=== PATIENT | female | born 1955 | race Caucasian/White ===

== ENCOUNTER 2018-05-16 06:48 | Day surgery (SDC) | payer OTHER, MEDICARE, MEDICAID ==
[~2018-05-16] VITALS: Ht 170.2 cm; Wt 63.6 kg
[~2018-05-16 06:48] MED LIST: ACET-2247 PO; BISA10S PR; BUSP15 PO; CALC25 PO; DENO60DI SQ; DIVA-78 PO; DIVA250T45 PO; FAMO1TAB29 PO; GUAIFDM PO; LEVO137T24 PO; LINA72CA PO; METO25XL PO; MOM30 PO; MULT-685 PO; PHEN200C PO; QUET100T PO; [UNRECOGNIZED DRUG - CODE] VG
[2018-05-16] MEDS ORDERED: RINGERS SOLUTION,LACTATED 1,000 ML IV ONE ×2 (07:00→08:19)
[2018-05-16] MEDS ORDERED: MIDAZOLAM HCL 5 MG/ML VIAL ONE (07:43)
[2018-05-16] MEDS ORDERED: OXYMETAZOLINE HCL 0.05% 15 ML NASAL SPRAY NASAL ONE (07:47)
[2018-05-16] MEDS ORDERED: LIDOCAINE/PF 2% 5 ML VIAL INJ ONE (12:00)
[2018-05-16] MEDS ORDERED: ONDANSETRON HCL 4 MG/2 ML VIAL IVP ONE (12:00)
[2018-05-16] MEDS ORDERED: KETAMINE HCL 50 MG/ML 10 ML VIAL IVP ONE (12:00)
[2018-05-16] MEDS ORDERED: MIDAZOLAM HCL 2 MG/2 ML VIAL IVP ONE (12:00)
[2018-05-16] MEDS ORDERED: SUCCINYLCHOLINE CHLORIDE 20 MG/ML 10 ML VIAL IVP ONE (12:00)
[2018-05-16] MEDS ORDERED: 0.9% SODIUM CHLORIDE 10 ML VIAL IVP ONE (12:00)
[2018-05-16] MEDS ORDERED: EPHEDrine SULFATE 50 MG/ML VIAL IM ONE (12:00)
[2018-05-16] MEDS ORDERED: PROPOFOL 1% 20 ML VIAL IVP ONE (12:00)
[2018-05-16] MEDS ORDERED: FentaNYL CITRATE-PF 100 MCG/2 ML VIAL IVP ONE (12:00)
== END 2018-05-16 11:00 | disposition short-term general hospital (02) ==
LOC: SURGERY 06:48
PROVIDERS: ATTEND Dentist General Practice
DX: K05.30 Chronic periodontitis, unspecified (principal); K21.9 Gastro-esophageal reflux disease without esophagitis; I10 Essential (primary) hypertension; E03.9 Hypothyroidism, unspecified; G40.909 Epilepsy, unspecified, not intractable, without status epilepticus; F72 Severe intellectual disabilities; Z85.850 Personal history of malignant neoplasm of thyroid; M81.0 Age-related osteoporosis without current pathological fracture
CPT/HCPCS: 41899; J0330; J2250 ×2; J2405; J2704; J3010; J3490 ×3; J7120

== ENCOUNTER 2019-10-23 06:40 | Day surgery (SDC) | payer OTHER, MEDICARE, MEDICAID ==
[~2019-10-23] VITALS: Ht 170.2 cm; Wt 60.0 kg
[~2019-10-23 06:40] MED LIST changes: -BISA10S PR; +BISA10SU11 PR; +DIAZ10 PO; +DIPH25TA51 PO; -FAMO1TAB29 PO; +LEVO125 PO; -LEVO137T24 PO; +MAG355OR89 PO; -METO25XL PO; -MULT-685 PO; +MULT-723 PO; -PHEN200C PO; -QUET100T PO; +QUET25TA PO; +RINGERS SOLUTION,LACTATED 1,000 ML IV ONE; +[UNRECOGNIZED DRUG - CODE] PO; -[UNRECOGNIZED DRUG - CODE] VG
[2019-10-23] MEDS ORDERED: 0.9% SODIUM CHLORIDE 10 ML VIAL IVP ONE (06:41)
[2019-10-23] MEDS ORDERED: PROPOFOL 1% 20 ML VIAL IVP ONE (06:41)
[2019-10-23] MEDS ORDERED: EPHEDrine SULFATE 50 MG/ML VIAL IM ONE (06:41)
[2019-10-23] MEDS ORDERED: ONDANSETRON HCL 4 MG/2 ML VIAL IVP ONE (06:41)
[2019-10-23] MEDS ORDERED: KETAMINE HCL 50 MG/ML 10 ML VIAL IVP ONE (06:41)
[2019-10-23] MEDS ORDERED: LIDOCAINE 1% 10 ML VIAL IM ONE (06:41)
[2019-10-23] MEDS ORDERED: SUCCINYLCHOLINE CHLORIDE 20 MG/ML 10 ML VIAL IVP ONE (06:41)
[2019-10-23] MEDS ORDERED: FentaNYL CITRATE-PF 100 MCG/2 ML VIAL IVP ONE (06:41)
[2019-10-23] MEDS ORDERED: DEXAMETHASONE SOD PHOS 4 MG/ML VIAL IVP ONE (06:41)
[2019-10-23] MEDS ORDERED: AMPICILLIN SODIUM 1 GM/VIAL ONE (07:16)
[2019-10-23] MEDS ORDERED: SODIUM CHLORIDE 0.9% 100 ML ONE (07:17)
[2019-10-23 08:38] LABS: BASOPHILS % (AUTO) 0.3 % (0.0-2.0); EOSINOPHILS % (AUTO) 0.8 % (1.0-6.0); HEMATOCRIT 38.9 % (36-46); HEMOGLOBIN 12.9 g/dL (12.0-16.0); LYMPHOCYTES # (AUTO) 1.9 K/uL (1.0-4.8); LYMPHOCYTES % (AUTO) 37.3 % (22.0-44.0); MEAN CORPUSCULAR HGB CONC 33.1 G/dL (31.0-37.0); MEAN CORPUSCULAR VOLUME 94 fL (80-100); MONOCYTES # (AUTO) 0.7 K/uL (0.1-1.0); MONOCYTES % (AUTO) 13.3 % (2.0-9.0); NEUTROPHILS # (AUTO) 2.5 K/uL (1.8-7.7); NEUTROPHILS % (AUTO) 48.3 % (40.0-70.0); PLATELET COUNT (AUTO) 167 K/uL (150-450); RED BLOOD CELL COUNT(AUTO) 4.15 MIL/uL (4.00-5.20); RED CELL DISTRIBUTION WIDTH 14.5 % (11.5-14.5)
[2019-10-23 08:41] LABS: CREATININE 1.11 mg/dL (0.60-1.30); POTASSIUM 3.9 mmol/L (3.5-5.1)
[2019-10-23 08:46] LABS: INR 1.1 (0.9-1.1); PROTHROMBIN TIME 11.3 SEC (9.4-11.6)
[2019-10-23 08:47] LABS: ALBUMIN 3.1 g/dL (3.4-5.0); BILIRUBIN,TOTAL 0.3 mg/dL (0.1-1.0); TOTAL PROTEIN, SERUM 7.4 g/dL (6.4-8.2)
== END 2019-10-23 11:35 | disposition home or self-care (01) ==
LOC: SURGERY 06:40
PROVIDERS: ATTEND Dentist General Practice
DX: K02.9 Dental caries, unspecified (principal); K05.30 Chronic periodontitis, unspecified; K03.6 Deposits [accretions] on teeth; G40.909 Epilepsy, unspecified, not intractable, without status epilepticus; I10 Essential (primary) hypertension; E03.9 Hypothyroidism, unspecified; K21.9 Gastro-esophageal reflux disease without esophagitis; Z79.899 Other long term (current) drug therapy; Z88.8 Allergy status to other drugs, medicaments and biological substances; Z85.850 Personal history of malignant neoplasm of thyroid; Z79.01 Long term (current) use of anticoagulants; Z91.041 Radiographic dye allergy status
CPT/HCPCS: 36415; 41899; 71045; 80053; 85025; 85610; 85730; 93005; J0290; J0330; J1100; J2405; J2704; J3010; J3490 ×3; J7050; J7120

== ENCOUNTER 2022-02-02 06:58 | Day surgery (SDC) | payer OTHER, MEDICARE, MEDICAID ==
[~2022-02-02] VITALS: Ht 170.2 cm; Wt 61.4 kg
[~2022-02-02 06:58] MED LIST changes: +CALC0.2521 PO; -CALC25 PO; +DIVA-112 PO; -DIVA-78 PO; +DIVA-85 PO; -DIVA250T45 PO; +MAGN-169 PO; -MOM30 PO; +[UNRECOGNIZED DRUG - CODE] PO; -[UNRECOGNIZED DRUG - CODE] PO
[2022-02-02] MEDS ORDERED: RINGERS SOLUTION,LACTATED 1,000 ML IV ONE (07:01)
[2022-02-02 07:29] LABS: COVID AG,FIA SOURCE NASAL SWAB
[2022-02-02] MEDS ORDERED: APIX5TAB PO (07:44)
[2022-02-02] MEDS ORDERED: LEVO112T7 PO (07:44)
[2022-02-02] MEDS ORDERED: DIGO125T72 PO (07:44)
[2022-02-02] MEDS ORDERED: DAPA10TA PO (07:44)
[2022-02-02] MEDS ORDERED: CARV3.1231 PO (07:44)
[2022-02-02] MEDS ORDERED: BUSP10TA23 PO (07:44)
[2022-02-02] MEDS ORDERED: ATOR-2 PO (07:44)
[2022-02-02] MEDS ORDERED: SACU1TAB PO (07:44)
[2022-02-02] MEDS ORDERED: CALC500T37 PO (07:44)
[2022-02-02] MEDS ORDERED: DICL100G31 TP (07:44)
[2022-02-02] MEDS ORDERED: DOCU-350 PO (07:44)
[2022-02-02] MEDS ORDERED: LACO100 PO (07:44)
[2022-02-02] MEDS ORDERED: GLYC2TAB21 PO (07:44)
[2022-02-02] MEDS ORDERED: AMPICILLIN SODIUM 2 GM/NS 100 ML IV ONE (07:54)
== END 2022-02-02 08:40 | disposition home or self-care (01) ==
LOC: SURGERY 06:58
PROVIDERS: ATTEND Dentist General Practice
DX: K02.9 Dental caries, unspecified (principal); Z53.8 Procedure and treatment not carried out for other reasons; I11.0 Hypertensive heart disease with heart failure; I48.91 Unspecified atrial fibrillation; E78.5 Hyperlipidemia, unspecified; E11.9 Type 2 diabetes mellitus without complications; I25.10 Atherosclerotic heart disease of native coronary artery without angina pectoris; I50.9 Heart failure, unspecified; Z79.899 Other long term (current) drug therapy; Z98.890 Other specified postprocedural states
CPT/HCPCS: 36415; 71045; 87426; 93005; C9803; J0290; J7120

== ENCOUNTER 2022-02-09 06:43 | Day surgery (SDC) | payer OTHER, MEDICARE, MEDICAID ==
[~2022-02-09] VITALS: Ht 170.2 cm; Wt 61.3 kg
[~2022-02-09 06:43] MED LIST changes: +APIX5TAB PO; +ATOR-2 PO; -BISA10SU11 PR; +BUSP10TA23 PO; -BUSP15 PO; -CALC0.2521 PO; +CALC500T37 PO; +CARV3.1231 PO; +DAPA10TA PO; +DICL100G31 TP; +DIGO125T72 PO; -DIPH25TA51 PO; -DIVA-112 PO; -DIVA-85 PO; +DOCU-350 PO; +GLYC2TAB21 PO; +LACO100 PO; +LEVO112T7 PO; -LEVO125 PO; -RINGERS SOLUTION,LACTATED 1,000 ML IV ONE; +SACU1TAB PO; -[UNRECOGNIZED DRUG - CODE] PO
[2022-02-09] MEDS ORDERED: ROCURONIUM BROMIDE 10 MG/ML 5 ML VIAL IVP ONE (06:44)
[2022-02-09] MEDS ORDERED: SUGAMMADEX SODIUM 200 MG/2 ML VIAL IVP ONE ×2 (06:44→14:03)
[2022-02-09] MEDS ORDERED: DEXAMETHASONE SOD PHOS 4 MG/ML VIAL IVP ONE (06:44)
[2022-02-09] MEDS ORDERED: PROPOFOL 1% 20 ML VIAL IVP ONE (06:44)
[2022-02-09] MEDS ORDERED: FentaNYL CITRATE PF 100 MCG/2 ML VIAL IVP ONE (06:44)
[2022-02-09] MEDS ORDERED: MIDAZOLAM HCL 2 MG/2 ML VIAL IVP ONE (06:44)
[2022-02-09] MEDS ORDERED: ONDANSETRON HCL 4 MG/2 ML VIAL IVP ONE (06:44)
[2022-02-09] MEDS ORDERED: LIDOCAINE/PF 2% 5 ML VIAL IM ONE (06:44)
[2022-02-09] MEDS ORDERED: AMPICILLIN SODIUM 2 GM/NS 100 ML IV ONE (06:47)
[2022-02-09] MEDS ORDERED: RINGERS SOLUTION,LACTATED 1,000 ML IV ONE (07:00)
[2022-02-09 08:23] LABS: COVID AG,FIA SOURCE NASAL SWAB
[2022-02-09 09:17] LABS: ALBUMIN 3.6 g/dL (3.4-5.0); BILIRUBIN,TOTAL 0.4 mg/dL (0.1-1.0); CALCIUM, TOTAL 9.6 mg/dL (8.8-10.5); CREATININE 1.24 mg/dL (0.60-1.30); POTASSIUM 4.6 mmol/L (3.5-5.1); TOTAL PROTEIN, SERUM 7.3 g/dL (6.4-8.2)
[2022-02-09 10:30] LABS: PROTHROMBIN TIME 11.3 SEC (9.4-11.6)
[2022-02-09 10:32] LABS: HEMATOCRIT 45.2 % (36-46); HEMOGLOBIN 14.8 g/dL (12.0-16.0); MEAN CORPUSCULAR VOLUME 89 fL (80-100); RED BLOOD CELL COUNT(AUTO) 5.08 MIL/uL (4.00-5.20)
[2022-02-09 10:33] LABS: BASOPHILS % (AUTO) 0.7 % (0.0-2.0); EOSINOPHILS % (AUTO) 0.9 % (1.0-6.0); LYMPHOCYTES % (AUTO) 27.4 % (22.0-44.0); MEAN CORPUSCULAR HEMOGLOBIN 29.1 pg (26.0-34.0); MEAN CORPUSCULAR HGB CONC 32.7 G/dL (31.0-37.0); MONOCYTES % (AUTO) 10.5 % (2.0-9.0); NEUTROPHILS # (AUTO) 3.9 K/uL (1.8-7.7); NEUTROPHILS % (AUTO) 60.5 % (40.0-70.0); PLATELET COUNT (AUTO) 174 K/uL (150-450); RED CELL DISTRIBUTION WIDTH 16.2 % (11.5-14.5)
[2022-02-09 10:34] LABS: LYMPHOCYTES # (AUTO) 1.8 K/uL (1.0-4.8); MONOCYTES # (AUTO) 0.7 K/uL (0.1-1.0)
[2022-02-09] MEDS ORDERED: FentaNYL CITRATE PF 100 MCG/2 ML VIAL IVP PRN (12:15)
[2022-02-09] MEDS ORDERED: OXYGEN THERAPY IH SCH (20:00)
== END 2022-02-09 15:10 | disposition home or self-care (01) ==
LOC: SURGERY 06:43
PROVIDERS: ATTEND Dentist General Practice
DX: K02.9 Dental caries, unspecified (principal); K05.30 Chronic periodontitis, unspecified; I10 Essential (primary) hypertension; E03.9 Hypothyroidism, unspecified; I48.91 Unspecified atrial fibrillation; G40.909 Epilepsy, unspecified, not intractable, without status epilepticus; K21.9 Gastro-esophageal reflux disease without esophagitis; K59.00 Constipation, unspecified; K03.6 Deposits [accretions] on teeth; Z79.01 Long term (current) use of anticoagulants; Z79.899 Other long term (current) drug therapy; Z98.890 Other specified postprocedural states; Z88.8 Allergy status to other drugs, medicaments and biological substances; I50.9 Heart failure, unspecified; E78.00 Pure hypercholesterolemia, unspecified
CPT/HCPCS: 36415; 41899; 71045; 80053; 84702; 85025; 85610; 85730; 87426; 93005; C9803; J0290; J1100; J2250; J2405; J2704; J3010; J3490 ×2; Q9967; Z7610

== ENCOUNTER 2023-07-05 06:46 | Day surgery (SDC) | payer OTHER, MEDICARE, MEDICAID ==
[~2023-07-05] VITALS: Ht 170.2 cm; Wt 53.6 kg
[~2023-07-05 06:46] MED LIST changes: -DICL100G31 TP; +DICL2100G TP; -DOCU-350 PO; +DOCU-412 PO; +RINGERS SOLUTION,LACTATED 1,000 ML IV ONE
[2023-07-05] MEDS ORDERED: AMPICILLIN SODIUM 2 GM/NS 100 ML IV ONE (07:26)
[2023-07-05 07:40] LABS: BAND NEUTROPHILS % (MANUAL) 0 % (0-5)
[2023-07-05 07:41] LABS: HEMATOCRIT 39.8 % (36-46); HEMOGLOBIN 13.1 g/dL (12.0-16.0); MEAN CORPUSCULAR HEMOGLOBIN 31.1 pg (26.0-34.0); MEAN CORPUSCULAR HGB CONC 32.9 G/dL (31.0-37.0); MEAN CORPUSCULAR VOLUME 95 fL (80-100); PLATELET COUNT (AUTO) 193 K/uL (150-450); RED BLOOD CELL COUNT(AUTO) 4.21 MIL/uL (4.00-5.20); RED CELL DISTRIBUTION WIDTH 14.8 % (11.5-14.5); WHITE BLOOD COUNT (AUTO) 6.6 K/uL (4.5-11.0)
[2023-07-05 07:50] LABS: CALCIUM, TOTAL 8.7 mg/dL (8.8-10.5); CREATININE 1.06 mg/dL (0.60-1.30); POTASSIUM 3.9 mmol/L (3.5-5.1)
[2023-07-05 07:56] LABS: ALBUMIN 3.1 g/dL (3.4-5.0); BILIRUBIN,TOTAL 0.4 mg/dL (0.1-1.0); TOTAL PROTEIN, SERUM 7.3 g/dL (6.4-8.2)
[2023-07-05 07:57] LABS: INR 1.1 (0.9-1.1); PROTHROMBIN TIME 11.4 SEC (9.4-11.6)
[2023-07-05 08:27] LABS: LYMPHOCYTES % (MANUAL) 21 % (22-44); MONOCYTES % (MANUAL) 12 % (2-9); REACTIVE LYMPHOCYTES 3 % (0-0); SEGMENTED NEUTROPHILS % 64 % (40-70); TOTAL CELLS COUNTED 100
== END 2023-07-05 09:00 | disposition home or self-care (01) ==
LOC: SURGERY 06:46
PROVIDERS: ATTEND Dentist General Practice
DX: K05.30 Chronic periodontitis, unspecified (principal); Z53.8 Procedure and treatment not carried out for other reasons; G43.909 Migraine, unspecified, not intractable, without status migrainosus; I10 Essential (primary) hypertension; E03.9 Hypothyroidism, unspecified; K21.9 Gastro-esophageal reflux disease without esophagitis; K59.00 Constipation, unspecified; Z98.890 Other specified postprocedural states; I48.91 Unspecified atrial fibrillation; F72 Severe intellectual disabilities
CPT/HCPCS: 71045; 80053; 85007; 85027; 85610; 85730; 36415; 93005; J0290; J7120